=== PATIENT | female | born 2000 | race American Indian/Alaskan Native ===

== ENCOUNTER 2019-10-24 16:47 | Emergency (ER) | payer BC ==
[~2019-10-24] VITALS: Ht 154.9 cm; Wt 75.2 kg
[2019-10-24 19:06] LABS: CLARITY,URINE CLEAR (Clear); COLOR,URINE YELLOW (Yellow); GLUCOSE, URINE NEGATIVE (Neg); KETONES,URINE NEGATIVE (Neg); LEUKOCYTE ESTERASE ,URINE NEGATIVE (Neg); NITRITES, URINE NEGATIVE (Neg); OCCULT BLOOD,URINE NEGATIVE (Neg); PROTEIN,URINE NEGATIVE (Neg); UA COLLECTION TYPE CLN CATCH MIDSTREAM; UROBILINOGEN,URINE 0.2 E.U/dL (0.2-1.0)
[2019-10-24 19:51] VITALS: BP 120/63
== END 2019-10-24 19:52 | disposition home or self-care (01) ==
LOC: ER 16:48
DX: O26.892 Other specified pregnancy related conditions, second trimester (principal); R10.9 Unspecified abdominal pain; Z3A.16 16 weeks gestation of pregnancy
CPT/HCPCS: 81003; 99284

== ENCOUNTER 2020-03-18 06:33 | Emergency (ER) | payer BC ==
[~2020-03-18] VITALS: Ht 154.9 cm; Wt 86.0 kg
[2020-03-18 07:50] VITALS: BP 105/75
[2020-03-18] MEDS ORDERED: acetaminophen 325mg tablet PO ONE ×2 (07:50)
== END 2020-03-18 07:57 | disposition home or self-care (01) ==
LOC: ER 06:34
DX: O26.893 Other specified pregnancy related conditions, third trimester (principal); R07.81 Pleurodynia; Z3A.38 38 weeks gestation of pregnancy
CPT/HCPCS: 99281

== ENCOUNTER 2020-06-10 07:43 | Emergency (ER) | payer BC ==
[~2020-06-10] VITALS: Ht 154.9 cm; Wt 77.3 kg
[2020-06-10] MEDS ORDERED: TETanus/Pertussis (Acell)/Diphther VAC/PF (Tdap-Adult) 0.5ml syringe IMVAC ONE (08:40)
[2020-06-10] MEDS ORDERED: bacitracin 15gm ointment TP ONE (08:40)
[2020-06-10 08:48] LABS: BASOPHILS % (AUTO) 0.8 % (0-1); EOSINOPHILS # (AUTO) 0.1 X10'3 (0-0.9); EOSINOPHILS % (AUTO) 1.6 % (0-6); HEMATOCRIT 40.2 % (35.0-45.0); HEMOGLOBIN 13.4 g/dl (12.0-16.0); LYMPHOCYTES # (AUTO) 2.8 X10'3 (1.1-4.8); LYMPHOCYTES % (AUTO) 51.9 % (21-51); MEAN CORPUSCULAR HEMOGLOBIN 29.5 PG (27.0-31.0); MEAN CORPUSCULAR HGB CONC 33.4 g/dL (33.0-36.5); MEAN CORPUSCULAR VOLUME 88.4 FL (78-98); MEAN PLATELET VOLUME 6.6 FL (7.4-10.4); MONOCYTES # (AUTO) 0.4 X10'3 (0-0.9); MONOCYTES % (AUTO) 8.1 % (2-12); NEUTROPHILS % (AUTO) 37.6 % (42-75); PLATELET COUNT 263 X10'3 (140-440); RED BLOOD COUNT 4.54 X10'6 (4.20-5.60); WHITE BLOOD COUNT 5.3 X10'3 (4.5-11.0)
[2020-06-10 09:02] LABS: ALANINE AMINOTRANSFERASE 18 U/L (12-78); ALBUMIN 3.8 G/DL (3.4-5.0); ALKALINE PHOSPHATASE 67 IU/L (20-180); ANION GAP 10 (8-16); ASPARTATE AMINO TRANSFERASE 20 U/L (10-37); BILIRUBIN,TOTAL 1.4 MG/DL (0.1-1.0); BLOOD UREA NITROGEN 14 MG/DL (7-18); BUN/CREATININE RATIO 18.2 (6.6-38.0); CALCIUM 9.1 MG/DL (8.5-10.1); CHLORIDE 104 MMOL/L (99-107); CREATININE 0.77 MG/DL (0.40-0.90); GLUCOSE 92 MG/DL (70-104); POTASSIUM 3.1 MMOL/L (3.5-5.1); SODIUM 140 MMOL/L (135-145); TOTAL CARBON DIOXIDE 26.5 MMOL/L (24-32); TOTAL PROTEIN 7.7 G/DL (6.4-8.2); eGFR > 90 ML/MIN
[2020-06-10 09:10] LABS: ETHANOL < 0.010 GM/DL (0.0-0.010)
[2020-06-10 09:49] VITALS: BP 127/61
[2020-06-10 09:50] LABS: ACETAMINOPHEN < 2.0 UG/ML (10-30)
[2020-06-10] MEDS ORDERED: acetaminophen 325mg tablet PO ONE (09:55)
[2020-06-10 10:02] LABS: URINE HCG NEGATIVE (NEG)
[2020-06-10 10:07] LABS: CLARITY,URINE CLOUDY (Clear); COLOR,URINE YELLOW (Yellow); GLUCOSE, URINE NEGATIVE (Neg); KETONES,URINE NEGATIVE (Neg); LEUKOCYTE ESTERASE ,URINE TRACE (Neg); NITRITES, URINE NEGATIVE (Neg); OCCULT BLOOD,URINE SMALL (Neg); PROTEIN,URINE NEGATIVE (Neg); UROBILINOGEN,URINE 0.2 E.U/dL (0.2-1.0)
[2020-06-10 10:08] LABS: UA COLLECTION TYPE CLN CATCH MIDSTREAM
[2020-06-10 10:12] LABS: URINE AMPHETAMINE SCREEN NEGATIVE (Neg); URINE BARBITUATE SCREEN NEGATIVE (Neg); URINE BENZODIAZEPINES SCREEN NEGATIVE (Neg); URINE CANNABINOID SCREEN NEGATIVE (Neg); URINE COCAINE SCREEN NEGATIVE (Neg); URINE METHADONE SCREEN NEGATIVE (Neg); URINE OPIATE SCREEN NEGATIVE (Neg); URINE PHENCYCLIDINE SCREEN NEGATIVE (Neg)
[2020-06-10 10:30] LABS: SQUAMOUS EPITHELIAL CELL,UR MANY /LPF (FEW)
[2020-06-10 10:32] LABS: BACTERIA,URINE FEW /HPF (Neg); RBC,URINE 0-2 /HPF (0-2); WBC,URINE 0-4 /HPF (0-4)
--- NOTE | 2020-06-10 12:38 | NUR ---
Pt is pacing, appears very anxious, asks multiple staff members when she can leave, pt continuously eyes the doorway, eye contact is poor
--- NOTE | 2020-06-10 13:11 | NUR ---
Pt just finished interview with [facility], pt continues to have a flat affect, is downcast and mood appears to be depressed
--- NOTE | 2020-06-10 14:27 | NUR ---
Pt was interviewed a second time from [facility], pt has remained cooperative throughout the process
--- NOTE | 2020-06-10 14:46 | NUR ---
Reviewd discharge instructions with pt. Pt verbalized understanding and agrees to follow up with [facility]. Currently awaiting BF to pick her up.
--- NOTE | 2020-06-10 16:03 | NUR ---
Pt was escorted out by security to be taken home by her boyfriend
== END 2020-06-10 16:00 ==
LOC: ER 07:43
DX: S51.812A Laceration without foreign body of left forearm, initial encounter (principal); R94.6 Abnormal results of thyroid function studies; X83.8XXA Intentional self-harm by other specified means, initial encounter; Y93.89 Activity, other specified; Y92.89 Other specified places as the place of occurrence of the external cause; Y99.8 Other external cause status
CPT/HCPCS: 12002; 36415; 80053; 80305; 80320; 80329; 81001; 81025; 84443; 85025; 90471; 90715; 99285

== ENCOUNTER 2020-08-18 15:31 | Emergency (ER) | payer BC ==
[~2020-08-18] VITALS: Ht 154.9 cm; Wt 79.0 kg
[2020-08-18 15:34] VITALS: BP 121/80
== END 2020-08-18 16:50 | disposition home or self-care (01) ==
LOC: ER 15:32
DX: S06.0X0A Concussion without loss of consciousness, initial encounter (principal); S00.83XA Contusion of other part of head, initial encounter; R41.0 Disorientation, unspecified; R11.0 Nausea; W22.8XXA Striking against or struck by other objects, initial encounter; Y93.89 Activity, other specified; Y92.89 Other specified places as the place of occurrence of the external cause; Y99.8 Other external cause status
CPT/HCPCS: 99281

== ENCOUNTER 2022-01-27 10:26 | Emergency (ER) | payer BC ==
[~2022-01-27] VITALS: Ht 154.9 cm; Wt 82.9 kg
[2022-01-27 10:31] VITALS: BP 119/75
[2022-01-27 12:38] LABS: BASOPHILS % (AUTO) 0.5 % (0-1); EOSINOPHILS % (AUTO) 0.6 % (0-6); HEMATOCRIT 42.9 % (35.0-45.0); HEMOGLOBIN 14.3 g/dl (12.0-16.0); LYMPHOCYTES # (AUTO) 1.4 X10'3 (1.1-4.8); LYMPHOCYTES % (AUTO) 31.1 % (21-51); MEAN CORPUSCULAR HEMOGLOBIN 28.4 PG (27.0-31.0); MEAN CORPUSCULAR HGB CONC 33.4 g/dL (33.0-36.5); MEAN CORPUSCULAR VOLUME 85.1 FL (78-98); MEAN PLATELET VOLUME 6.4 FL (7.4-10.4); MONOCYTES # (AUTO) 0.3 X10'3 (0-0.9); MONOCYTES % (AUTO) 5.8 % (2-12); NEUTROPHILS # (AUTO) 2.8 X10'3 (1.8-7.7); PLATELET COUNT 308 X10'3 (140-440); RED BLOOD COUNT 5.04 X10'6 (4.20-5.60); WHITE BLOOD COUNT 4.4 X10'3 (4.5-11.0)
[2022-01-27 12:48] LABS: ALANINE AMINOTRANSFERASE 17 U/L (12-78); ALBUMIN 4.3 G/DL (3.4-5.0); ALKALINE PHOSPHATASE 54 IU/L (46-116); ANION GAP 7 (8-16); ASPARTATE AMINO TRANSFERASE 14 U/L (10-37); BILIRUBIN,TOTAL 1.2 MG/DL (0.1-1.0); BLOOD UREA NITROGEN 13 MG/DL (7-18); BUN/CREATININE RATIO 14.3 (6.6-38.0); CALCIUM 9.4 MG/DL (8.5-10.1); CHLORIDE 103 MMOL/L (99-107); CREATININE 0.91 MG/DL (0.40-0.90); GLUCOSE 91 MG/DL (70-104); POTASSIUM 4.2 MMOL/L (3.5-5.1); SODIUM 139 MMOL/L (135-145); TOTAL CARBON DIOXIDE 28.6 MMOL/L (24-32); TOTAL PROTEIN 8.6 G/DL (6.4-8.2); eGFR 77 ML/MIN
[2022-01-27 12:49] LABS: URINE HCG NEGATIVE (NEG)
[2022-01-27 12:51] LABS: CLARITY,URINE SLIGHTLY CLOUDY (Clear); COLOR,URINE YELLOW (Yellow); GLUCOSE, URINE NEGATIVE (Neg); KETONES,URINE TRACE mg/dl (Neg); LEUKOCYTE ESTERASE ,URINE NEGATIVE (Neg); NITRITES, URINE NEGATIVE (Neg); OCCULT BLOOD,URINE NEGATIVE (Neg); PROTEIN,URINE TRACE mg/dl (Neg); UROBILINOGEN,URINE 0.2 E.U/dL (0.2-1.0)
[2022-01-27 12:57] LABS: ETHANOL < 0.010 GM/DL (0.0-0.010)
[2022-01-27 13:01] LABS: UA COLLECTION TYPE CLN CATCH MIDSTREAM
[2022-01-27 13:02] LABS: WBC,URINE 0-4 /HPF (0-4)
[2022-01-27 13:03] LABS: BACTERIA,URINE 1+ /HPF (Neg); MUCUS STRANDS MANY /LPF (Neg); RBC,URINE 0-2 /HPF (0-2); SQUAMOUS EPITHELIAL CELL,UR MANY /LPF (FEW); URINE AMPHETAMINE SCREEN NEGATIVE (Neg); URINE BARBITUATE SCREEN NEGATIVE (Neg); URINE BENZODIAZEPINES SCREEN NEGATIVE (Neg); URINE CANNABINOID SCREEN NEGATIVE (Neg); URINE COCAINE SCREEN NEGATIVE (Neg); URINE METHADONE SCREEN NEGATIVE (Neg); URINE OPIATE SCREEN NEGATIVE (Neg); URINE PHENCYCLIDINE SCREEN NEGATIVE (Neg)
== END 2022-01-27 13:51 | disposition home or self-care (01) ==
LOC: ER 10:26
DX: O99.345 Other mental disorders complicating the puerperium (principal); F53.0 Postpartum depression; Z20.822 Contact with and (suspected) exposure to COVID-19
CPT/HCPCS: 36415; 80053; 80305; 80320; 81001; 81025; 84443; 85025; 87635; 99283; C9803; 99285

== ENCOUNTER 2025-07-14 00:42 | Inpatient (IN) | payer BC ==
[~2025-07-14] VITALS: Ht 154.9 cm; Wt 82.6 kg
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
[2025-07-14] MEDS ORDERED: LUMA42CA4 PO (02:11)
[2025-07-14] MEDS ORDERED: LISD40CA PO (02:11)
[2025-07-14 02:22] LABS: CREATININE 0.68 MG/DL (0.40-0.90); ETHANOL < 10 MG/DL (<10); TOTAL CARBON DIOXIDE 25.1 MMOL/L (24-32); eCRCL 104 ML/MIN; eGFR > 90 ML/MIN
[2025-07-14 02:23] LABS: MEAN PLATELET VOLUME 6.8 FL (7.4-10.4); RED CELL DISTRIBUTION WIDTH 14.3 % (11.5-14.5)
[2025-07-14 06:15] LABS: URINE AMPHETAMINE SCREEN NEGATIVE (Neg); URINE BARBITUATE SCREEN NEGATIVE (Neg); URINE BENZODIAZEPINES SCREEN NEGATIVE (Neg); URINE CANNABINOID SCREEN NEGATIVE (Neg); URINE COCAINE SCREEN NEGATIVE (Neg); URINE HCG NEGATIVE (NEG); URINE METHADONE SCREEN NEGATIVE (Neg); URINE OPIATE SCREEN NEGATIVE (Neg); URINE PHENCYCLIDINE SCREEN NEGATIVE (Neg)
[2025-07-14 06:24] LABS: LEUKOCYTE ESTERASE ,URINE SMALL (Neg); NITRITES, URINE NEGATIVE (Neg); OCCULT BLOOD,URINE LARGE (Neg)
[2025-07-14 06:33] LABS: UA COLLECTION TYPE VOIDED
[2025-07-14 06:36] LABS: MUCUS STRANDS NONE SEEN /LPF (Neg); SQUAMOUS EPITHELIAL CELL,UR MODERATE /LPF (FEW)
[2025-07-14] MEDS: lisdexamfetamine dimesylate 10mg capsule PO SCH (08:31)
[2025-07-14] MEDS: potassium Cl 20 mEq SR tablet PO ONE (08:31)
[2025-07-14 23:35] VITALS: BP 122/85; PULSE 100; RESP 18; TEMP 98.2; O2SAT 97
[2025-07-14] MEDS ORDERED: magnesium hydroxide 30ml (MOM) UD suspension PO PRN (23:55)
[2025-07-14] MEDS ORDERED: mag hydrox/Alum hydrox/simeth 30ml oral suspension PO PRN (23:55)
[2025-07-14] MEDS ORDERED: NICOTINE POLACRILEX 2 MG LOZENGE BC PRN (23:55)
[2025-07-14] MEDS ORDERED: loperamide 2mg capsule PO PRN (23:55)
[2025-07-15] VITALS: RESP 18; O2SAT 97
[2025-07-15] MEDS ORDERED: LUMATEPERONE TOSYLATE 42 MG PO SCH (01:08)
[2025-07-15] MEDS: LUMATEPERONE TOSYLATE 42 MG PO SCH (01:25)
[2025-07-15 07:30] VITALS: BP 117/72; PULSE 94; RESP 16; TEMP 98.4
[2025-07-15 08:00] VITALS: RESP 16; O2SAT 98
[2025-07-15] MEDS ORDERED: nicotine 21mg patch - 24 hr TD SCH (08:00)
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
[2025-07-15 11:55] LABS: CHOL/HDL RATIO 2.9 (0.00-4.99); LDL CHOLESTEROL 88 MG/DL (50-100)
--- NOTE | 2025-07-15 12:16 | ELECTROCARDIOGRAPH REPORT ---
[facility] Test Date: 2025-07-15 Test Time: 12:12:46 Pat Name: JULIETTE DEL REAL Department: [facility] Patient ID: [facility]-[id number] Room: 330 B Gender: F Bending Roll Hand: : 2000 Requested By: ELIZABETH AVILA Order Number: [id number] Reading MD: Dr. Harsh Abebe Measurements Intervals [place] Rate: 72 P: 51 ME: 121 QRS: 65 QRSD: 87 T: 43 QT: 408 QTc: 447 Interpretive Statements Sinus rhythm RSR' in V1 or V2, probably normal variant Electronically Signed On 07-20-2025 6:58:[address] Harsh Abebe Please click the below link to view image of tracing.
--- NOTE | 2025-07-15 13:46 | HISTORY AND PHYSICAL ---
History & Physical Providers to CC ~ History of Present Illness Reason for Admit\Complaint: Grave disability History of Present Illness 25 years old female has been admitted at [facility] on a 5150 hold for grave disability, delusional thinking disorganized speech. Patient recently lost her job and has been off her medications. I reviewed psych notes. She has no acute medical issues. Allergies: Coded Allergies: No Known Allergies (Unverified , 06/10/20) Home Medications Home Medications Active Reported Caplyta (Lumateperone Tosylate) 42 Mg Capsule 1 Cap PO DAILY WITH MEALS Vyvanse (Lisdexamfetamine Dimesylate) 40 Mg Capsule 1 Cap PO QAM Past Medical History Past Medical History Bipolar, depression, schizophrenia, hx of post depression Past Surgical History Surgical History Comment None Family History Family History: Family history was reviewed; no changes noted. Past Social History Social History Comment States she does not smoke drink or do any drugs Exam Vitals: Vital Signs Date Time Temp Pulse Resp B/P (MAP) Pulse Ox O2 Delivery O2 Flow Rate FiO2 07/15/25 07:30 98.4 94 16 117/72 (87) Room Air 07/15/25 00:00 97 07/14/25 00:50 0 Diagnostic Data Last Recorded Lab Results: 07/14/25 0147 07/14/25 014 SUSANNE TABARES MD Jul 15, 2025 13:46
[2025-07-15 19:40] VITALS: BP 149/85; PULSE 83; RESP 17; TEMP 99; O2SAT 99
[2025-07-16 07:00] VITALS: BP 117/78; PULSE 84; RESP 16; TEMP 98.4; O2SAT 97; O2SAT 99
[2025-07-16] MEDS: OMEGA-3/DHA/EPA/FISH OIL 1 EACH CAPSULE.DR PO SCH (08:00)
[2025-07-16 10:47] LABS: CREATININE 0.86 MG/DL (0.40-0.90); TOTAL CARBON DIOXIDE 31.2 MMOL/L (24-32); eCRCL 75 ML/MIN; eGFR 80 ML/MIN
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
[2025-07-16 19:00] VITALS: RESP 18; O2SAT 95
[2025-07-16 20:00] VITALS: BP 142/90; PULSE 100; RESP 18; TEMP 98.7; O2SAT 95
[2025-07-17 05:19] LABS: HBSAG SCREEN Negative (Negative); HEP B CORE AB, IGM Negative (Negative); HEP B CORE AB, TOT Negative (Negative)
[2025-07-17 07:00] VITALS: RESP 16; O2SAT 99
[2025-07-17 08:00] VITALS: BP 115/68; PULSE 68; RESP 16; TEMP 97.4; O2SAT 99
--- NOTE | 2025-07-17 15:20 | PROGRESS NOTE- Residence ---
Progress Note - Resident Providers to CC Resident Creating Document: JOSE LYNCH RES ~ Antibiotic Timeout Antibiotic Ordered?: No Subjective Patient was seen and examined at the bedside. She complains of recurrent anxiety. Denies any medical complaints. Objective Vital Signs Date Time Temp Pulse Resp B/P (MAP) Pulse Ox O2 Delivery O2 Flow Rate FiO2 07/17/25 08:00 97.4 68 16 115/68 (84) 99 07/17/25 07:00 Room Air 0.0 Result Diagram: 07/14/25 0147 07/16/25 0957 General: Awake and Alert, no acute distress. HEENT: Conjunctiva pink, Sclera clear, Mucus Membranes moist. Neck: Supple without masses and tenderness. Resp: Unlabored. Lungs clear to auscultation bilaterally. Heart: Regular Rate and rhythm, normal S1 and S2 without murmur, rub or gallop. Abdomen: Soft and non tender no organomegaly Extremities: No cyanosis,clubbing or edema. Skin: Warm and Dry. Plan Plan Assessment 25-year-old female patient admitted for psychosis. Schizophrenia - acute psychosis Depression Psychiatric management Asymptomatic bacteriuria 30-50 WBC, leukocyte esterase positive No antibiotics prescribed unless patient is symptomatic All other labs reviewed and unremarkable No active medical complaints Disposition: Hospitalist team will continue to follow Resident MD attestation The above note has been reviewed and supervised by a senior resident PGY2/PGY3 Patient was seen, examined and discussed with the attending physician Date of Service: Jul 17, 2025 Billing Provider: LAYA JAVED MD, LUCAS, RES Jul 17, 2025 15:20
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
[2025-07-17 19:00] VITALS: RESP 18; O2SAT 100
[2025-07-17 20:00] VITALS: BP 127/91; PULSE 98; RESP 18; TEMP 97; O2SAT 100
[2025-07-18 07:00] VITALS: RESP 14; O2SAT 98
[2025-07-18 08:00] VITALS: BP 116/86; PULSE 86; RESP 14; TEMP 98.3; O2SAT 98
[2025-07-18 19:00] VITALS: RESP 16; O2SAT 98
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
[2025-07-18 20:00] VITALS: BP 125/74; PULSE 116; RESP 16; TEMP 98.1; O2SAT 98
[2025-07-19 07:00] VITALS: RESP 14; O2SAT 98
[2025-07-19 08:00] VITALS: BP 122/74; PULSE 90; RESP 14; TEMP 98.1; O2SAT 98
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
[2025-07-19 19:00] VITALS: RESP 16; O2SAT 99
[2025-07-19 19:41] LABS: URINE HCG NEGATIVE (NEG)
[2025-07-19 20:00] VITALS: BP 123/75; PULSE 107; RESP 16; TEMP 98.3; O2SAT 99
[2025-07-19 20:30] VITALS: PULSE 88
--- NOTE | 2025-07-19 20:51 | PROGRESS NOTE- Residence ---
Progress Note - Resident Providers to CC Resident Creating Document: JOSE GUADALUPE CAREY RES ~ Antibiotic Timeout Antibiotic Ordered?: No Subjective Patient was seen and examined at the bedside. He reported having mild nausea and vomiting. She denies any abdominal, fever and chest pain Objective Vital Signs Date Time Temp Pulse Resp B/P (MAP) Pulse Ox O2 Delivery O2 Flow Rate FiO2 07/19/25 08:00 98.1 90 14 122/74 (90) 98 Room Air 07/17/25 07:00 0.0 Result Diagram: 07/16/25 0957 General: Awake and Alert, no acute distress. HEENT: Conjunctiva pink, Sclera clear, Mucus Membranes moist. Neck: Supple without masses and tenderness. Resp: Unlabored. Lungs clear to auscultation bilaterally. Heart: Regular Rate and rhythm, normal S1 and S2 without murmur, rub or gallop. Abdomen: Soft and non tender no organomegaly Extremities: No cyanosis,clubbing or edema. Skin: Warm and Dry. Advance Care Planning Advanced Care plannin - 30 Minutes Plan Plan Assessment 25-year-old female patient admitted for psychosis. Schizophrenia - acute psychosis Depression Psychiatric management Asymptomatic bacteriuria 30-50 WBC, leukocyte esterase positive No antibiotics prescribed unless patient is symptomatic All other labs reviewed and unremarkable No active medical complaints Nausea and vomiting Patient started on Zofran p.o. for 3 days Disposition: Hospitalist team will continue to follow Jose Guadalupe Carey PGY1-Internal Medicine Resident Date of Service: Jul 19, 2025 Billing Provider: LAYA JAVED MD, SATISH, RES Jul 19, 2025 20:51
[2025-07-19] MEDS: ondansetron 4mg rapidly disintigrating tab PO SCH (20:55)
[2025-07-20 07:00] VITALS: RESP 16; O2SAT 95
[2025-07-20 08:00] VITALS: BP 121/74; PULSE 100; RESP 16; TEMP 98.1; O2SAT 95
[2025-07-20] MEDS ORDERED: RISP0.5T74 PO (13:20)
[2025-07-20] MEDS ORDERED: TRAZ-251 PO (13:20)
[2025-07-20] MEDS ORDERED: CLON-565 PO (13:20)
[2025-07-20] MEDS ORDERED: OMEG1CAP46 PO (13:20)
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
== END 2025-07-20 13:47 | disposition home or self-care (01) | DRG 885 ==
LOC: ER 00:42 → ADULT MH 23:41
PROVIDERS: ADMIT Psychiatry & Neurology Psychiatry; ATTEND Psychiatry & Neurology Psychiatry
DX: F20.9 Schizophrenia, unspecified (principal); F41.9 Anxiety disorder, unspecified; R11.2 Nausea with vomiting, unspecified; F32.A Depression, unspecified; R82.71 Bacteriuria; G47.00 Insomnia, unspecified; Z20.822 Contact with and (suspected) exposure to COVID-19; Z63.72 Alcoholism and drug addiction in family; Z81.1 Family history of alcohol abuse and dependence; Z91.51 Personal history of suicidal behavior; Z81.8 Family history of other mental and behavioral disorders
CPT/HCPCS: 36415; 80048; 80053; 80061; 80305; 80320; 81001; 81025; 82248; 83036; 84443; 85025; 86704; 86705; 87081; 87340; 87811; 93005; A6250; Q0177